=== PATIENT | female | born 1960 | race Caucasian/White ===

== ENCOUNTER 2017-01-10 07:07 | Emergency (ER) | payer BC ==
[2017-01-10 07:18] VITALS: BP 163/81
--- NOTE | 2017-01-10 07:32 | UC ---
Respiratory Complaint HPI - HPI Summary HPI Summary: 2 WEEKS OF COUGH, CONGESTION, ST, EAR FULNESS, BELL AND FATIGUE. HAS HAD SUBJECTIVE FEVER AND CHILLS. NOT GETTING BETTER. - History of Current Complaint Chief Complaint: UC Stated Complaint: SINUS ISSUE Time Seen by Provider: 01/10/17 07:15 Hx Obtained From: Patient Onset/Duration: Gradual Onset, Lasting Weeks, Still Present Timing: Constant Severity Initially: Moderate Severity Currently: Moderate Pain Intensity: 7 Pain Scale Used: 0-10 Numeric Character: Cough: Nonproductive Aggravating Factors: Nothing Alleviating Factors: Nothing Associated Signs And Symptoms: Positive: Fever, Chills, URI, Nasal Congestion, Sinus Discomfort - Allergies/Home Medications Allergies/Adverse Reactions: Allergies Allergy/AdvReac Type Severity Reaction Status Date / Time Adhesive Tape Allergy Rash Uncoded 01/10/17 07:11 Seasonal Allergies Allergy Congestion Uncoded 01/10/17 07:11 PMH/Surg Hx/FS Hx/Imm Hx Respiratory History Of: Reports: Asthma Psychological History Of: Reports: Depression - Surgical History Surgical History: Yes Surgery Procedure, Year, and Place: biopsy x3 breast, skin, back surgery - Family History Known Family History: Positive: Diabetes - Social History Alcohol Use: None Substance Use Type: None Smoking Status (MU): Never Smoked Tobacco - Immunization History Most Recent Influenza Vaccination: fall 2015 Review of Systems Constitutional: Fever, Chills, Fatigue ENT: Sore Throat, Ear Ache, Nasal Discharge Respiratory: Cough Cardiovascular: Negative Gastrointestinal: Negative Neurological: Headache All Other Systems Reviewed And Are Negative: Yes Physical Exam Triage Information Reviewed: Yes Appearance: Well-Appearing, No Pain Distress, Well-Nourished Vital Signs: Initial Vital Signs Temp 97.6 F 01/10/17 07:14 Pulse 74 01/10/17 07:14 Resp 16 01/10/17 07:14 BP 163/81 01/10/17 07:14 Pulse Ox 100 01/10/17 07:14 Vital Signs Reviewed: Yes Eyes: Positive: Conjunctiva Clear ENT: Positive: Hearing grossly normal, Pharynx normal, TMs normal Neck: Positive: Supple, Nontender, No Lymphadenopathy Respiratory Exam: Normal Cardiovascular Exam: Normal Abdomen Description: Positive: Soft Musculoskeletal: Positive: No Edema Neurological: Positive: Alert Psychological: Positive: Age Appropriate Behavior Skin: Negative: rashes UC Diagnostic Evaluation - Laboratory O2 Sat by Pulse Oximetry: 100 Respiratory Course/Dx - Differential Dx/Diagnosis Provider Diagnoses: ACUTE BRONCHITIS Discharge - Discharge Plan Condition: Stable Disposition: HOME Prescriptions: Azithromycin [Azithromycin 500 MG TAB] 500 mg PO DAILY #5 tab Fluticasone NASAL SPRAY 50MCG* [Flonase NASAL SPRAY 50MCG*] 2 spray BOTH NARES DAILY #1 btl Patient Education Materials: Acute Bronchitis (ED) Referrals: Chica Antonio [Primary Care Provider] - If Needed Additional Instructions: YOUR SYMPTOMS ARE LIKELY VIRALLY MEDIATED BUT WE WILL TREAT YOU BASED ON LENGTH OF TIME OF ILLNESS. TRY OTC AFRIN FOR NASAL CONGESTION. OKAY TO USE 2-3 SPRAYS IN EACH NOSTRIL UP TO 2 TIMES DAILY. DO NOT USE FOR MORE THAN 3-4 CONSECUTIVE DAYS TO PREVENT DEVELOPING REBOUND CONGESTION. FOLLOW-UP WITH YOUR PCP IF NOT IMPROVING EXPECTED.
== END 2017-01-10 07:38 | disposition home or self-care (01) ==
LOC: UCEAST 07:07
DX: J20.9 Acute bronchitis, unspecified (principal)
CPT/HCPCS: 99212; G0463

== ENCOUNTER 2017-04-30 07:08 | Emergency (ER) | payer BC ==
[2017-04-30 07:29] VITALS: BP 142/98
--- NOTE | 2017-04-30 07:35 | UC ---
Skin Complaint HPI - HPI Summary HPI Summary: POISON SUSANA EXPOSURE 2 WEEKS AGO. HAS CONTINUED TO GET NEW AREAS OF ITCHY RASH OVER HER BODY. USING OTC CREAMS WITHOUT MUCH RELIEF. NO FEVER. - History of Current Complaint Chief Complaint: UCRash Time Seen by Provider: 04/30/17 07:20 Stated Complaint: RASH Hx Obtained From: Patient Onset/Duration: Gradual Onset, Lasting Weeks, Still Present Skin Exposure Onset/Duration: Weeks Ago Timing: Constant Onset Severity: Moderate Current Severity: Moderate Pain Intensity: 7 Pain Scale Used: 0-10 Numeric Location: Diffuse Character: Pruritus, Redness Aggravating: Touch Alleviating: Nothing Associated Signs & Symptoms: Positive: Rash. Negative: Fever, Tenderness Related History: Possible Reaction to: Environmental Exposure - Allergy/Home Medications Allergies/Adverse Reactions: Allergies Allergy/AdvReac Type Severity Reaction Status Date / Time Adhesive Tape Allergy Rash Uncoded 01/10/17 07:11 Seasonal Allergies Allergy Congestion Uncoded 01/10/17 07:11 Review of Systems Constitutional: Negative Skin: Rash Respiratory: Negative Cardiovascular: Negative Gastrointestinal: Negative All Other Systems Reviewed And Are Negative: Yes PMH/Surg Hx/FS Hx/Imm Hx Respiratory History: Asthma Psychological History: Anxiety - Surgical History Surgical History: Yes Surgery Procedure, Year, and Place: biopsy x3 breast, skin, back surgery - Family History Known Family History: Positive: Hypertension, Diabetes - Social History Alcohol Use: None Substance Use Type: None Smoking Status (MU): Never Smoked Tobacco - Immunization History Most Recent Influenza Vaccination: fall 2015 Physical Exam Triage Information Reviewed: Yes Appearance: Well-Appearing, No Pain Distress, Well-Nourished Vital Signs: Initial Vital Signs Temp 98.7 F 04/30/17 07:15 Pulse 65 04/30/17 07:15 Resp 18 04/30/17 07:15 BP 142/98 04/30/17 07:15 Pulse Ox 100 04/30/17 07:15 Vital Signs Reviewed: Yes Eyes: Positive: Conjunctiva Clear ENT: Positive: Hearing grossly normal Neck: Positive: Supple Respiratory: Positive: No respiratory distress, No accessory muscle use Cardiovascular: Positive: Pulses Normal Abdomen Description: Positive: Soft Musculoskeletal: Positive: No Edema Neurological: Positive: Alert Psychological: Positive: Age Appropriate Behavior Skin: Positive: rashes - CLUSTERS AND STREAKS OF ERYTHEMATOUS VESICLES AND PAPULES ON RIGHT WRIST, NECK, LEFT CHEEK, RIGHT HIP, BUTTOCK AND RIGHT THIGH Course/Dx - Diagnoses Provider Diagnoses: CONTACT DERMATITIS Discharge - Discharge Plan Condition: Stable Disposition: HOME Prescriptions: Triamcinolone 0.1% CREAM(NF) [Kenalog Cream 0.1%(NF)] 1 applic TOPICAL TID PRN # 1 tube PRN Reason: Itching predniSONE TAB* [Deltasone TAB*] 50 mg PO DAILY #5 tab Patient Education Materials: Contact Dermatitis (ED) Referrals: Chica Antonio [Primary Care Provider] - If Needed Additional Instructions: YOUR RASH CERTAINLY APPEARS TO BE A CONTACT DERMATITIS SIMILAR TO POISON SUSANA. WILL TREAT WITH TOPICAL AND ORAL STEROIDS. KEEP COOL, CLEAN AND DRY. TAKE AN OTC ANTIHISTAMINE DAILY. FOLLOW-UP WITH YOUR RADIATION PHYSICIST IF YOU ARE NOT IMPROVING WITH THIS TREATMENT.
== END 2017-04-30 07:43 | disposition home or self-care (01) ==
LOC: UCEAST 07:08
DX: L23.7 Allergic contact dermatitis due to plants, except food (principal); T63.791A Toxic effect of contact with other venomous plant, accidental (unintentional), initial encounter; Y92.9 Unspecified place or not applicable
CPT/HCPCS: 99212; G0463